=== PATIENT | female | born 1940 | race Caucasian/White ===

== ENCOUNTER 2018-10-15 16:34 | Inpatient (IN) | payer MEDICARE, MEDICAID ==
[2018-10-15 16:34] VITALS: BMI 28.3
--- NOTE | 2018-10-15 18:26 | ED PDOC ---
HPI: Back Time Seen by Provider: 10/15/18 17:33 Chief Complaint (Nursing): Back Pain Chief Complaint (Provider): Back Pain History Per: Patient, Family History/Exam Limitations: no limitations Onset/Duration Of Symptoms: Days (x1) Current Symptoms Are (Timing): Still Present Additional Complaint(s): 78 y/o female with a PMHx of Alzheimer's and DM brought in by son and EMS for evaluation after patient fell yesterday morning while getting up from bed. Son reports of finding the patient on the floor looking up after hearing her screaming in the room. Patient has since been unable to get out of bed and has become incontinent which is new for the patient thus prompting today's visit. Son reports he does not believe patient injured her head or lost consciousness as he heard screaming from her room and attended to her right away. Son additionally notes that patient has had poor appetite for the last few days. Otherwise, patient denies fever, sick contact, nausea and vomiting. PMD: Louis Farmer Past Medical History Reviewed: Historical Data, Nursing Documentation, Vital Signs Vital Signs: Last Vital Signs Temp 97.8 F 10/15/18 16:38 Pulse 80 10/15/18 16:38 Resp 18 10/15/18 16:38 BP 132/87 10/15/18 16:38 Pulse Ox 99 10/15/18 16:38 - Medical History PMH: Alzheimer's Disease, Anxiety, Dementia, Diabetes, HTN Denies: Hepatitis, HIV, Chronic Kidney Disease, Seizures, Sexually Transmitted Disease - Surgical History Surgical History: No Surg Hx - Family History Family History: States: Unknown Family Hx - Home Medications Home Medications: Ambulatory Orders Medication Instructions Recorded Levocetirizine Dihydrochloride 5 mg PO DAILY 03/22/16 Clopidogrel [Plavix] 75 mg PO DAILY #0 tab 03/26/16 Donepezil HCl [Aricept] 10 mg PO DAILY #0 tablet 03/26/16 Memantine HCl [Namenda Xr] 28 mg PO DAILY #0 cap.spr.24 03/26/16 Metformin HCl [Glucophage] 500 mg PO BID #0 tablet 03/26/16 Metoprolol Succinate XL [Toprol XL] 100 mg PO DAILY #0 tab 03/26/16 Mirtazapine [Remeron] 15 mg PO HS #0 tablet 09/07/16 Pantoprazole [Protonix EC Tab] 40 mg PO DAILY #0 ect 03/26/16 Pravastatin Sodium [Pravachol] 20 mg PO HS #0 tab 03/26/16 SITagliptin [Januvia] 100 mg PO DAILY #0 tab 03/26/16 - Allergies Allergies/Adverse Reactions: Allergies Allergy/AdvReac Type Severity Reaction Status Date / Time No Known Allergies Allergy Verified 03/22/16 11:26 Review of Systems ROS Statement: Except As Marked, All Systems Reviewed And Found Negative Constitutional: Negative for: Fever Gastrointestinal: Positive for: Other (POOR APPETITE). Negative for: Nausea, Vomiting Musculoskeletal: Positive for: Back Pain (S/P FALL) Physical Exam - Reviewed Nursing Documentation Reviewed: Yes Vital Signs Reviewed: Yes - Physical Exam Appears: Positive for: Uncomfortable Head Exam: Positive for: ATRAUMATIC, NORMAL INSPECTION (NO SIGNS OF HEAD INJURY), NORMOCEPHALIC Skin: Positive for: Normal Color, Warm, Dry Eye Exam: Positive for: Normal appearance, EOMI, PERRL Neck: Positive for: Normal, Painless ROM Cardiovascular/Chest: Positive for: Regular Rate, Rhythm Respiratory: Positive for: Normal Breath Sounds Back: Positive for: Other (complaining of pain with movement and palpation to the lumbar spine) Extremity: Negative for: Normal ROM (complaining of pain with movement ), Other (ecchymosis or obvious injury) Neurological/Psych: Positive for: Awake, Oriented (TO SELF), Other (Noted right facial paralysis that son notes is old) - Laboratory Results Result Diagrams: 10/15/18 18:21 10/15/18 18:21 - ECG O2 Sat by Pulse Oximetry: 99 (RA) Pulse Ox Interpretation: Normal Medical Decision Making Medical Decision Making: Time: 1753 Impression: Back Pain Plan: -- CT Cervical Spine -- CT Head w/o Contrast -- CT Lumbar Spine w/o Contrast -- EKG -- CMP -- Magnesium -- Phosphorus -- Troponin I -- CBC with Differentials -- IV Insertion -- Accucheck -- Pelvis Two XR -- Urinalysis PATIENT HANDED OFF TO HAMILTON PATEL PA-C. PT PENDING CT SCANS AND DISPOSITION Scribe Attestation: Documented by Christiano Rodriguez, acting as a scribe for Clarissa Mejia PA-C. Provider Scribe Attestation: All medical record entries made by the Scribe were at my direction and personally dictated by me. I have reviewed the chart and agree that the record accurately reflects my personal performance of the history, physical exam, medical decision making, and the department course for this patient. I have also personally directed, reviewed, and agree with the discharge instructions and disposition. Disposition - Clinical Impression Clinical Impression: Fall, Back pain, Alzheimer disease - Disposition Disposition Time: 20:00 Condition: FAIR Forms: [facility] (Mongolian) Patient Signed Over To: Hamilton Oilvas Handoff Comments: CT SCAN, DISPOSITION - POA Present On Arrival: None
[2018-10-15 18:34] LABS: BASO % 0.5 % (0.0-2.0); EOS # 0.1 K/uL (0.0-0.7); EOS % 1.2 % (0.0-4.0); HEMOGLOBIN 14.4 g/dL (12.0-16.0); LYMPH # 1.1 K/uL (1.0-4.3); LYMPH % 17.3 % (20.0-40.0); MEAN CELL VOLUME 85.9 fl (81.0-99.0); MEAN CORPUSCULAR HEMOGLOBIN 29.1 pg (27.0-31.0); MEAN CORPUSCULAR HGB CONC 33.9 g/dL (33.0-37.0); MEAN PLATELET VOLUME 8.2 fl (7.2-11.7); MONO # 0.5 K/uL (0.0-0.8); MONO % 8.3 % (0.0-10.0); NEUT # 4.5 K/uL (1.8-7.0); NEUT % 72.7 % (50.0-75.0); NRBC % 0.2 % (0.0-0.0); RBC 4.93 Mil/uL (3.80-5.20); RED CELL DISTRIBUTION WIDTH 14.2 % (11.5-14.5); WHITE BLOOD COUNT 6.1 K/uL (4.8-10.8)
[2018-10-15 18:49] LABS: ALB/GLOB RATIO 1.1 (1.0-2.1); ALBUMIN 4.3 g/dL (3.5-5.0); ALT/SGPT 24 U/L (9-52); AST/SGOT 28 U/L (14-36); BLOOD UREA NITROGEN 16 mg/dl (7-17); CALCIUM 9.7 mg/dL (8.4-10.2); GFR NON-AFRICAN AMERICAN > 60
[2018-10-15] MEDS ORDERED: Sodium Chloride 0.9% 500 ML IV STA (19:28)
--- NOTE | 2018-10-16 00:23 | ED PDOC ---
- Laboratory Results Result Diagrams: 10/15/18 18:21 10/15/18 18:21 Lab Results: Troponin I < 0.0120 ng/mL (0.00-0.120) 10/15/18 18:21 Total Bilirubin 1.0 mg/dl (0.2-1.3) 10/15/18 18:21 AST 28 U/L (14-36) 10/15/18 18:21 ALT 24 U/L (9-52) 10/15/18 18:21 Alkaline Phosphatase 89 U/L (38-126) 10/15/18 18:21 Total Protein 8.1 G/DL (6.3-8.2) 10/15/18 18:21 Albumin 4.3 g/dL (3.5-5.0) 10/15/18 18:21 Globulin 3.8 gm/dL (2.2-3.9) 10/15/18 18:21 Albumin/Globulin Ratio 1.1 (1.0-2.1) 10/15/18 18:21 - ECG ECG: Positive for: Viewed By Ms (reviewed by ED attending) ECG Rhythm: Positive for: Sinus Rhythm O2 Sat by Pulse Oximetry: 99 (RA) - Radiology X-Ray: Viewed By Ms X-Ray Interpretation: No Acute Disease - Other Rad xray right hip X-Ray: Viewed By Ms X-Ray Interpretation: no acute findings - Progress ED Course And Treament: Case endorsed to marketing writer from [employer] pending labs, imaging Patient sent back from CT due to agitation Aram Garcia ordered CT of the head Clinical history: fall. Protocol: Multiple axial CT images obtained with 5 mm slice thickness were obtained through the head without administration of contrast. Comparison: None. Findings: The ventricles and sulci are symmetric but prominent in size bilaterally. There are periventricular areas of low attenuation throughout the deep white matter. There is no evidence of acute hemorrhage or infarct. There is no midline shift, mass effect, or extra-axial fluid collection. The osseous structures are unremarkable. The visualized paranasal sinuses and mastoid air c ells are clear. Impression: No acute hemorrhage or infarct. Findings are consistent with age-related atrophy and chronic small vessel ischemic disease CT of the cervical spine Clinical history: fall. Technique: Multiple axial CT images were obtained through the cervical spine without administration of contrast. Coronal and sagittal 3-D reconstructed images were also obtained. Comparison: None. Findings: The cervical vertebral bodies are in satisfactory positioning and alignment. No fractures or dislocations are demonstrated. The odontoid process is intact. Intervertebral disc spaces are severely narrowed at C3/C4, C5/C6, C6/C7, and C7/T1. There is moderate bilateral facet arthropathy with sclerosis and osteophytes. There is no evidence of facet subluxation. The cervical cranial junction is intact. A large disc osteophyte complex at C3/C4 causes mild central canal stenosis measuring 9 mm in AP diameter. There is severe right neural foraminal narrowing and moderate left neural foraminal narrowing at this level. At C5/C6, there is a moderate disc osteophyte complex and disc bulge. This causes borderline central canal stenosis measuring 11 mm in AP diameter. There is moderate right neural foraminal narrowing at this level. There are mild disc osteophyte complexes and disc bulges at C6/C7 and C7/T1. Impression: 1. No acute fracture or traumatic injury. 2. Large disc osteophyte complex and disc bulge at C3/C4 causing mild central canal stenosis, severe right neural foraminal narrowing and moderate left neural foraminal narrowing. 3. Moderate disc osteophyte complex and disc bulge at C5/C6 causes borderline central canal stenosis and moderate right neural foraminal narrowing. 4. Disc osteophyte complexes and disc bulges are noted at C6/C7 and C7/T1 without evidence of central canal stenosis or neural foraminal narrowing. 5. Moderate diffuse spondylosis also as described CT scan of the lumbar spine without contrast. Indication: Fall. Back pain. Technique: Axial CT scan images without contrast. Reformatted coronal and sagittal images. Findings: Acute oblique nondisplaced fracture of the left sacral ala. Subacute fracture of the mid aspect of the left transverse process of L3. Moderate degenerative levoscoliosis apex at L3. Mild osteopenia of the bones. Grade 1 anterolisthesis of L5 on S1. Mild chronic benign osteoporotic compression deformity of L4. Moderate chronic benign osteoporotic compression deformity of T12.There are diffuse spondylotic changes. Findings are demonstrated by disc space narrowing, osteophyte formation and degenerative endplate changes. Facet joint arthropathy is noted. No dislocation is seen. No aggressive bone lesion is noted. Moderate chronic changes of gastric disease. Impression: Spondylosis. Multilevel facet joint arthropathy. Acute oblique nondisplaced fracture of the left sacral ala. Subacute fracture of the mid aspect of the left transverse process of L3 with callus formation Patient resting comfortably while in stretcher Case discussed with Dr. Hernandez for admission Disposition - Clinical Impression Clinical Impression: Fall, Alzheimer disease, Sacral fracture - POA Present On Arrival: Falls Or Trauma - Disposition Disposition: Hospitalized as Observation Patient Disposition Time: 01:00 Condition: FAIR
--- NOTE | 2018-10-16 10:37 | CT ---
Date of service: 10/15/2018 PROCEDURE: CT HEAD WITHOUT CONTRAST. HISTORY: fall/ unknown head injury COMPARISON: Comparison made with prior CT scan 03/23/2016. TECHNIQUE: Axial computed tomography images were obtained through the head/brain without intravenous contrast. Radiation dose: Total exam DLP = 797.36 mGy-cm. This CT exam was performed using one or more of the following dose reduction techniques: Automated exposure control, adjustment of the mA and/or kV according to patient size, and/or use of iterative reconstruction technique. FINDINGS: HEMORRHAGE: No acute parenchymal, subarachnoid or extra-axial hemorrhage. BRAIN: Moderate to fairly significant diffuse/confluent chronic periventricular white matter ischemic changes seen extending peripherally into the deep and subcortical white matter both cerebral hemispheres. There also scattered chronic bilateral basal nuclei lacunar type infarcts.. Additionally, there also suspected chronic brainstem ischemic changes Note that the possibility of a small hyperacute infarct cannot be excluded on this exam Moderate-significant generalized volume loss. VENTRICLES: No obstructive hydrocephalus. CALVARIUM: No acute calvarial fractures. PARANASAL SINUSES: Unremarkable as visualized. No significant inflammatory changes. MASTOID AIR CELLS: Unremarkable as visualized. No inflammatory changes. OTHER FINDINGS: Changes of bilateral cataract surgery again noted. IMPRESSION: No acute intracranial hemorrhage. Moderate-fairly significant diffuse and confluent chronic periventricular white matter ischemic changes with scattered chronic bilateral basal nuclei lacunar type infarcts. Suspect chronic brainstem ischemic changes as well. Note that the possibility of a small hyperacute infarct cannot be excluded on this exam Moderate generalized volume loss
--- NOTE | 2018-10-16 10:46 | CT ---
Date of service: 10/15/2018 PROCEDURE: CT Lumbar Spine without contrast HISTORY: fall/ back pain COMPARISON: None available. TECHNIQUE: Axial computed tomography images were obtained of the lumbar spine without the use of intravenous contrast. Coronal and sagittal reformatted images were created and reviewed. Radiation dose: Total exam DLP = 695.34 mGy-cm. This CT exam was performed using one or more of the following dose reduction techniques: Automated exposure control, adjustment of the mA and/or kV according to patient size, and/or use of iterative reconstruction technique. FINDINGS: VERTEBRAE: There are no acute compression fractures no retropulsed fragments however note made of a healing L3 transverse process fracture.. Chronic appearing degenerative endplate changes-Schmorl's nodes seen along the mid and right parasagittal superior L4 endplate as well as the posterior L2-L3 endplates. There is also a mild to moderate levoscoliosis centered at the L3-L4 level as well.. Slight anterior subluxation L5 over S1.. Slight posterior subluxation L1 over L2.. Note made of a few scattered small sclerotic foci likely representing bone islands or osteomas. DISCS/SPINAL CANAL/NEURAL FORAMINA: L1-2: Disc space narrowing. No disc herniation or significant disc bulge. Facets are hypertrophic. There is uncovering of the posterior inferior surface of the disc due to the slight posterior subluxation of L1 over L2. Facets are hypertrophic. Central canal and exit foramina adequate. L2-3: Disc space narrowing with small small to medium-sized osteophytic ridge disc complex that extends into the proximal inferior margins of both exit foramina. Facets are hypertrophic and flavum also buckled. Changes result in significant bilateral lateral recess and central canal stenosis. Exit foramina are mildly narrowed. L3-4: Disc space height relatively maintained. Moderate disc ridge complex extends into the proximal inferior margins of both exit foramina. Facets are hypertrophic and flavum are also buckled. Changes result in significant bilateral lateral recess and central canal stenosis. Proximal exit foramina are narrowed. L4-5: Disc space narrowing with vacuum disc phenomena. Broad-based disc ridge complex extends into the proximal inferior margins of both exit foramina. The facets are quite hypertrophic. There is bilateral lateral recess and central canal stenosis. The proximal exit foramina are quite stenotic bilaterally. L5-S1: There is disc space narrowing more so along the anterior disc margin with slight uncovering of the posterior superior surface of the disc due to the slight anterior subluxation. Small broad-based disc ridge complex also minimally flattens the ventral surface of the thecal sac. The facets are quite hypertrophic at this level left greater than right... Exit foramina are stenotic bilaterally with compressive effects on the L5 foraminal nerve roots left greater than right. PARASPINAL SOFT TISSUES: Unremarkable. OTHER FINDINGS: Suspect vascular calcifications left renal hilum. IMPRESSION: Healing left L3 transverse process fracture. No acute compression fractures no retropulsed fragments. Moderate to significant multilevel degenerative spondylosis as above.
--- NOTE | 2018-10-16 10:53 | CT ---
Date of service: 10/15/2018 PROCEDURE: CT Cervical Spine without contrast HISTORY: Fall COMPARISON: None available. TECHNIQUE: Axial computed tomography images were obtained of the cervical spine without the use of intravenous contrast. Coronal and sagittal reformatted images were created and reviewed. Radiation dose: Total exam DLP = 240.84 mGy-cm. This CT exam was performed using one or more of the following dose reduction techniques: Automated exposure control, adjustment of the mA and/or kV according to patient size, and/or use of iterative reconstruction technique. FINDINGS: VERTEBRAE: No acute compression fractures nor retropulsed fragments. Minor chronic appearing anterior stature loss of the C5 segment felt to be degenerative in origin. Vertebral bodies exhibit relatively normal stature. Slight anterior subluxation C7 over T1 vertebral bodies and facets normally aligned. DISCS/SPINAL CANAL/NEURAL FORAMINA: Multilevel degenerative spondylosis. At the C2-C3 level, there is adequate disc height. Minor asymmetric broad-based disc bulge larger on the right than left. Facets are hypertrophic. Central canal and exit foramina adequate. At the C3-C4 level, there is disc space narrowing. Irregular and asymmetric disc ridge complex larger on the right than left and contiguous with hypertrophic uncovertebral joints. Facets also moderate to significantly hypertrophic on the right and moderately hypertrophic on the left. Changes result in mild central canal stenosis and cord compression. Exit foramina are stenotic bilaterally right greater than left. At the C4-C5 level, there is relatively adequate disc height. No disc herniation. The left facet joint is quite hypertrophic. Central canal appears adequate. Left exit foramen is marginal to adequate. At the C5-C6 level, there is marked disc space narrowing with cortical endplate irregularity- eburnation with subchondral cystic changes. Small to medium-sized asymmetric ridge disc complex larger on the right than left and contiguous with hypertrophic uncovertebral joints.. The left facet quite hypertrophic. Mild right facet arthropathy. There is mild canal narrowing and cord compression more so on the right side. Right exit foramen is stenotic. Left exit foramen is marginal to minimally narrowed. At the C6-C7 level, there is marked disc space narrowing with cortical endplate irregularity. Small osteophytic ridge disc complex contiguous with hypertrophic uncovertebral joints. The facets also hypertrophic. Central canal exit foramina appear adequate. Degenerative changes also noted at the C7-T1 level include marked disc space narrowing with mild endplate eburnation. Central canal appears adequate. Exit foramina appear stenotic right greater than left.. PARASPINAL SOFT TISSUES: Unremarkable. OTHER FINDINGS: None. IMPRESSION: No acute fractures. Multilevel degenerative spondylosis as above
--- NOTE | 2018-10-16 14:39 | RAD ---
Date of service: 10/15/2018 PROCEDURE: Radiographs of the pelvis. HISTORY: Fall COMPARISON: Comparison made with concurrent CT scan lumbar spine which partially imaged the pelvis TECHNIQUE: 1 view obtained. FINDINGS: BONES: Pelvic Bones: Unremarkable. Hips: Grossly unremarkable.. There is partial obscuration of the lower sacrum by overlying bowel related type artifact JOINTS: Minor spur formation arising from the superolateral borders of both acetabular roofs. Sacroiliac Joints: Unremarkable. Pubic Symphysis: Unremarkable. OTHER FINDINGS: None. IMPRESSION: Slightly limited study as described. No definitive radiographic evidence of acute displaced fracture nor dislocation if symptoms persist or occult fracture suspected clinically recommend follow-up CT scan of the pelvis Mild DJD as above.
[2018-10-16] MEDS: Dextrose 5%/Lactated Ringer's 1,000 ML IV SCH (14:51)
--- NOTE | 2018-10-16 17:07 | RAD ---
Date of service: 10/15/2018 HISTORY: FALL COMPARISON: No prior. TECHNIQUE: 1 view obtained. FINDINGS: LUNGS: The interstitial markings are increased and coarsened; rule out chronic compensated pulmonary venous congestion. Suspect small granuloma left CP angle region.. PLEURA: No significant pleural effusion identified, no pneumothorax apparent. CARDIOVASCULAR: Moderate aortic atherosclerotic calcification present. Cardiomegaly with situ prostatic valve. OSSEOUS STRUCTURES: No significant abnormalities. VISUALIZED UPPER ABDOMEN: Normal. OTHER FINDINGS: None. IMPRESSION: The interstitial markings are increased and coarsened; rule out chronic compensated pulmonary venous congestion. Suspect small granuloma left CP angle region..
--- NOTE | 2018-10-16 17:09 | RAD ---
Date of service: 10/15/2018 PROCEDURE: Pelvis right hip HISTORY: FALL COMPARISON: Comparison made with prior concurrent radiographs of the pelvis TECHNIQUE: Frontal view of the pelvis and 3 additional views of the right hip performed. FINDINGS: No evidence of acute displaced fracture nor dislocation. Both femoral heads are appropriately located within the respective acetabula. Mild degenerative changes both hip joints with some spurring of the superolateral margins of the acetabular roofs. Note is also made of a crescentic shaped density which overlies the right lateral iliac bone possibly representing osteoma or bone island. IMPRESSION: No acute fractures. Mild degenerative osteoarthritis as described.
--- NOTE | 2018-10-16 18:40 | CARD ---
APPROVED REPORT Date of service: 10/16/2018 EKG Measurement Heart [id number] CO [id number] <Conclusion> Normal sinus rhythm Nonspecific ST and T wave abnormality Abnormal ECG
[2018-10-16] MEDS ORDERED: LUBIPROSTONE 24 MCG PO PRN (19:40)
[2018-10-16] MEDS: Pravastatin Sodium 20 MG TAB PO SCH (21:27)
[2018-10-16] MEDS ORDERED: Metoprolol Succinate 50 mg XL Tab PO ONE ×2 (21:54→21:59)
[2018-10-16] MEDS ORDERED: Acetaminophen-Codeine 300/30 mg Tab PO PRN (21:59)
[2018-10-17] MEDS: Dextrose 5%/Lactated Ringer's 1,000 ML IV SCH (06:25)
[2018-10-17] MEDS ORDERED: Metoprolol Succinate 50 mg XL Tab PO SCH (09:00)
[2018-10-17] MEDS: DONEPEZIL 23 MG PO SCH (09:32)
--- NOTE | 2018-10-17 17:20 | US ---
Date of service: 10/17/2018 PROCEDURE: Duplex ultrasound of the carotid and vertebral arteries. HISTORY: Falls COMPARISON: Comparison made with prior study 02/08/2010 TECHNIQUE: Grayscale and duplex Doppler evaluation of the cervical carotid and vertebral arteries were performed. The common carotid, carotid bifurcations and cervical ICA and proximal ECA were evaluated. The vertebral arteries were evaluated for gross patency and direction. FINDINGS: RIGHT CAROTID ARTERIES: Common Carotid Artery: Normal. Maximal flow velocity of 45 cm/s. Carotid Bifurcation: There is calcified plaque seen at the distal right common carotid artery as well as right carotid bifurcation extending into the proximal right internal carotid artery. Internal Carotid Artery:Normal. Maximal flow velocity of 50 cm/s. External Carotid Artery (proximal branches): Normal. Maximal flow velocity of 45 cm/s. ICA/CCA Ratio: 0.8 LEFT CAROTID ARTERIES: Common Carotid Artery: Normal. Maximal flow velocity of 52 cm/s. Carotid Bifurcation: Calcified plaque seen left carotid bifurcation and extending into the proximal left internal carotid artery Internal Carotid Artery:Normal. Maximal flow velocity of 54 cm/s. External Carotid Artery (proximal branches): Normal. Maximal flow velocity of 70 cm/s. ICA/CCA Ratio: 0.9 VERTEBRAL ARTERIES: Right Vertebral Artery: Patent. Antegrade flow. Left Vertebral Artery: Patent. Antegrade flow. OTHER FINDINGS: Atherosclerotic plaque present. As above. IMPRESSION: Calcified atherosclerotic plaque seen both carotid bifurcations and proximal internal carotid arteries as well as the distal right common carotid artery. No evidence of stepped up velocities.
[2018-10-17] MEDS: Metoprolol Succinate 100 mg XL Tab PO SCH (17:41)
[2018-10-17] MEDS: Pravastatin Sodium 20 MG TAB PO SCH (22:00)
--- NOTE | 2018-10-17 22:29 | CP.PCM.HP ---
History of Present Illness - History of Present Illness History of Present Illness: This is an 78 y/o female admitted after a fall at home and subsequent urinary incontinence. Patient was noted by her son lying on the floor screaming from pain after a fall. He also noted patient to have become incontinent of urine hence he got worried and brought patient to ER. Patient has a hx of HTn , dementia and DM 2 Initial xrays showed a fracture of left L3 transverse process fracture. Other xrays showed multiple sites of OA. The rest of lumbar discs showed multiple discs protrusion and bulging discs. Present on Admission - Present on Admission Any Indicators Present on Admission: No History of DVT/PE: No History of Uncontrolled Diabetes: Yes Urinary Catheter: No Decubitus Ulcer Present: No Review of Systems - Constitutional Constitutional: Anorexia - Neurological Neurological: Memory Loss, Weakness Past Patient History - Infectious Disease Hx of Infectious Diseases: None - Tetanus Immunizations Tetanus Immunization: Unknown - Past Medical History & Family History Past Medical History?: Yes - Past Social History Smoking Status: Unobtainab - CARDIAC Hx Hypertension: Yes - PULMONARY Hx Respiratory Disorders: No - NEUROLOGICAL Hx Neurological Disorder: Yes Hx Alzheimer's Disease: Yes Hx Dementia: Yes - HEENT Other/Comment: right eye with neuralgia,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 - RENAL Hx Chronic Kidney Disease: No - ENDOCRINE/METABOLIC Hx Endocrine Disorders: Yes Hx Diabetes Mellitus Type 2: Yes - HEMATOLOGICAL/ONCOLOGICAL Hx Human Immunodeficiency Virus (HIV): No - INTEGUMENTARY Hx Dermatological Problems: No - MUSCULOSKELETAL/RHEUMATOLOGICAL Hx Musculoskeletal Disorders: Yes Hx Falls: Yes - GASTROINTESTINAL Hx Gastrointestinal Disorders: No - GENITOURINARY/GYNECOLOGICAL Hx Sexually Transmitted Disorders: No - PSYCHIATRIC Hx Anxiety: Yes - SURGICAL HISTORY Hx Surgeries: No - ANESTHESIA Hx Anesthesia: (unknown - does not remember) Meds Allergies/Adverse Reactions: Allergies Allergy/AdvReac Type Severity Reaction Status Date / Time No Known Allergies Allergy Verified 03/22/16 11:26 Physical Exam - Head Exam Head Exam: NORMAL INSPECTION - Eye Exam Eye Exam: Normal appearance - ENT Exam ENT Exam: Mucous Membranes Moist - Respiratory Exam Respiratory Exam: Clear to Auscultation Bilateral - Cardiovascular Exam Cardiovascular Exam: REGULAR RHYTHM - GI/Abdominal Exam GI & Abdominal Exam: Normal Bowel Sounds - Neurological Exam Neurological exam: CN II-XII Intact, Oriented x3 Results - Vital Signs Recent Vital Signs: Last Vital Signs Temp 97.8 F 10/17/18 20:22 Pulse 83 10/17/18 20:22 Resp 18 10/17/18 20:22 BP 160/95 H 10/17/18 20:22 Pulse Ox 95 10/17/18 20:22 - Labs Result Diagrams: 10/15/18 18:21 10/15/18 18:21 Labs: Laboratory Results - last 24 hr 10/17/18 10/17/18 10/17/18 05:02 10:41 15:49 POC Glucose (mg/dL) 182 H 194 H 180 H 10/17/18 22:06 POC Glucose (mg/dL) 158 H Assessment & Plan (1) Lumbar vertebral fracture Status: Acute (2) Alzheimer disease Status: Acute (3) HTN (hypertension) Status: Chronic (4) Fall Status: Acute (5) Dementia Status: Acute (6) DM2 (diabetes mellitus, type 2) Status: Chronic - Assessment and Plan (Free Text) Plan: Observe BP meds accucheck restart januvia cont fluids start phys therapy in am
--- NOTE | 2018-10-17 22:40 | CP.PCM.PN ---
Subjective - Date & Time of Evaluation Date of Evaluation: 10/17/18 Time of Evaluation: 16:00 - Subjective Subjective: Noted to have elevated BP despite meds accuchecks are also elevated Very poor appetite Has minimal pain Objective - Vital Signs/Intake and Output Vital Signs (last 24 hours): Temp Pulse Resp BP Pulse Ox 97.8 F 83 18 160/95 H 95 10/17/18 20:22 10/17/18 20:22 10/17/18 20:22 10/17/18 20:22 10/17/18 20:22 - Medications Medications: Current Medications Acetaminophen/Codeine Phosphate (Tylenol/Codeine 300 Mg/30 Mg) 1 tab PO TID PRN PRN Reason: Pain, moderate (4-7) Clopidogrel Bisulfate (Plavix) 75 mg PO DAILY [facility] Last Admin: 10/17/18 09:33 Dose: 75 mg Home Med (Patient's Own Medication) 1 unit PO DAILY [facility] Last Admin: 10/17/18 09:32 Dose: 1 unit Home Med (Patient's Own Medication) 1 unit PO BIDWM PRN PRN Reason: constipation Lisinopril (Zestril) 20 mg PO DAILY [facility] Last Admin: 10/17/18 17:40 Dose: 20 mg Memantine (Namenda) 10 mg PO BID [facility] Last Admin: 10/17/18 17:40 Dose: 10 mg Metoprolol Succinate (Toprol Xl) 100 mg PO DAILY [facility] Last Admin: 10/17/18 17:41 Dose: 100 mg Pravastatin Sodium (Pravachol) 20 mg PO [facility] Last Admin: 10/17/18 22:00 Dose: Not Given Sitagliptin Phosphate (Januvia) 100 mg PO DAILY [facility] Last Admin: 10/17/18 09:32 Dose: 100 mg - Labs Labs: 10/15/18 18:21 10/15/18 18:21 - Head Exam Head Exam: NORMAL INSPECTION - Eye Exam Eye Exam: Normal appearance - Respiratory Exam Respiratory Exam: NORMAL BREATHING PATTERN - Cardiovascular Exam Cardiovascular Exam: REGULAR RHYTHM - GI/Abdominal Exam GI & Abdominal Exam: Normal Bowel Sounds - Neurological Exam Neurological Exam: Awake Assessment and Plan (1) Lumbar vertebral fracture Status: Acute (2) Alzheimer disease Status: Acute (3) HTN (hypertension) Status: Chronic (4) Fall Status: Acute (5) Dementia Status: Acute (6) DM2 (diabetes mellitus, type 2) Status: Chronic - Assessment and Plan (Free Text) Plan: Cont meds check CXR and urine adjust BP meds add amlodipine
[2018-10-18 04:37] VITALS: RESP 18
[2018-10-18 05:50] LABS: HEMOGLOBIN 13.5 g/dL (12.0-16.0); MEAN CELL VOLUME 86.3 fl (81.0-99.0); MEAN CORPUSCULAR HEMOGLOBIN 28.3 pg (27.0-31.0); MEAN CORPUSCULAR HGB CONC 32.8 g/dL (33.0-37.0); RBC 4.78 Mil/uL (3.80-5.20); RED CELL DISTRIBUTION WIDTH 14.2 % (11.5-14.5); WHITE BLOOD COUNT 10.1 K/uL (4.8-10.8)
[2018-10-18 06:07] LABS: ALB/GLOB RATIO 1.1 (1.0-2.1); ALBUMIN 3.7 g/dL (3.5-5.0); ALT/SGPT 32 U/L (9-52); AST/SGOT 22 U/L (14-36); BLOOD UREA NITROGEN 8 mg/dl (7-17); CALCIUM 9.5 mg/dL (8.4-10.2); GFR NON-AFRICAN AMERICAN > 60; HDL CHOLESTEROL 40 MG/DL (30-70)
[2018-10-18 06:09] LABS: B-TYPE NATRIURETIC PEPTIDE 3150 pg/ml (0-900)
[2018-10-18 06:13] LABS: LDL CHOLESTEROL 89 mg/dL (0-129)
--- NOTE | 2018-10-18 12:42 | CP.PCM.PCO ---
Assessment/Plan Progress Note - Assessment/Plan Assessment (Free Text): pt. seen and examined, pt in NAD, oriented to self only, spoke to son at bedside who is next of kin, son reports pt. has progressive Alzh. Dementia and is unable to care for her at home ; requesting NH placement advance directives discussed with son along w/ goals of care; at this this son requests full code status - Problems Patient Problems: Problem List (Active/Current) Problem Status Onset Code Alzheimer disease Acute G30.9, F02.80 Dementia Acute F03.90 Fall Acute W19.XXXA Lumbar vertebral fracture Acute S32.009A Sacral fracture Acute S32.10XA
--- NOTE | 2018-10-18 18:37 | CARD ---
APPROVED REPORT Date of service: 10/18/2018 EXAM: Two-dimensional and M-mode echocardiogram with Doppler and color Doppler. Other Information Quality : AverageRhythm : NSR INDICATION Hypertension/HCVD Pulmonary Congestion 2D DIMENSIONS IVSd1.06 (0.7-1.1cm)LVDd4.59 (3.9-5.9cm) LVOT Diameter1.57 (1.8-2.4cm)PWd1.04 (0.7-1.1cm) IVSs1.33 (0.8-1.2cm)LVDs2.64 (2.5-4.0cm) FS (%) 42.5 %PWs1.19 (0.8-1.2cm) Aortic Valve AoV Peak Gcxdbvgd477.8cm/sAoV VTI48.2cmAO Peak GR.35mmHg LVOT Peak Omjuepcj426.2cm/sLVOT VTI21.98cmAO Mean GR.20mmHg ALEJANDRO (VMAX)0.83cu7EVL (VTI)0.58cm2 Mitral Valve MV E Ouzdmwjs31.8cm/sMV DECEL OGOQ364jhMN A Uorurhjk998.7cm/s MV CKN00txY/A ratio0.6MVA (PHT)2.58cm2 TDI Lateral E' Peak V6.11cm/sMedial E' Peak V3.26cm/sE/Lateral E'12.6 E/Medial E'23.6 Tricuspid Valve TR Peak Vzolwyhr274rk/sRAP BMRSZCXC12lgSfCX Peak Gr.25mmHg [id number] LEFT VENTRICLE The left ventricle is normal size. There is normal left ventricular wall thickness. The left ventricular systolic function is normal. The estimated ejection fraction is 60-65% No regional wall motion abnormalities noted.. Transmitral Doppler flow pattern is Grade I-abnormal relaxation pattern. No left ventricle thrombus noted on this study. There is no ventricular septal defect visualized. There is no left ventricular aneurysm. There is no mass noted in the left ventricle. RIGHT VENTRICLE The right ventricle is normal size. There is normal right ventricular wall thickness. The right ventricular systolic function is normal. ATRIA The left atrium size is normal. The right atrium size is normal. The interatrial septum is intact with no evidence for an atrial septal defect. AORTIC VALVE The aortic valve is calcified. No aortic regurgitation is present. There is moderate to severe aortic valvular stenosis. Peak aortic velocity is - 3.5 m/sec. Calculated AV area is < 1cm2. There is no aortic valvular vegetation. MITRAL VALVE The mitral valve is normal in structure. There is no evidence of mitral valve prolapse. There is no mitral valve stenosis. There is trace mitral valve regurgitation noted. TRICUSPID VALVE The tricuspid valve is normal in structure. There is mild tricuspid valve regurgitation noted. RVSP is calculated at 30 mm Hg. There is no tricuspid valve prolapse or vegetation. There is no tricuspid valve stenosis. PULMONIC VALVE The pulmonary valve is normal in structure. There is no pulmonic valvular regurgitation. There is no pulmonic valvular stenosis. GREAT VESSELS The aortic root is normal in size. The ascending aorta is normal in size. The pulmonary artery is normal. The IVC is normal in size and collapses >50% with inspiration. PERICARDIAL EFFUSION There is no pericardial effusion. There is no pleural effusion. <Conclusion> The estimated ejection fraction is 60-65% Transmitral Doppler flow pattern is Grade I-abnormal relaxation pattern. The left atrium size is normal. There is moderate to severe aortic valvular stenosis. Peak aortic velocity is - 3.5 m/sec. Calculated AV area is < 1cm2. Correlate clinically. There is trace mitral valve regurgitation noted. There is mild tricuspid valve regurgitation noted. RVSP is calculated at 30 mm Hg.
[2018-10-18] MEDS: Pravastatin Sodium 20 MG TAB PO SCH (21:31)
--- NOTE | 2018-10-18 23:10 | CP.PCM.PN ---
Subjective - Date & Time of Evaluation Date of Evaluation: 10/18/18 Time of Evaluation: 10:30 - Subjective Subjective: patient seen and examined at bedside. Interim events noted No complaints offered at this time denies cp/sob/fever/chills. available diagnostic data reviewed Review of Systems limited due to dementia Objective Vital Signs Stable - Constitutional Appears: Non-toxic, No Acute Distress Head Exam: NORMAL INSPECTION Eye Exam: Normal appearance Respiratory Exam: NORMAL BREATHING PATTERN Cardiovascular Exam: +S1, +S2 GI & Abdominal Exam: Soft Neurological Exam: Alert, Awake Psychiatric exam: Normal Affect, Normal Mood Skin Exam: Normal Color, Warm Assessment and Plan monitor vitals monitor labs Cont meds Cont tx consultants appreciated input PT eval echo today rest of plan as ordered Objective - Vital Signs/Intake and Output Vital Signs (last 24 hours): Temp Pulse Resp BP Pulse Ox 97.7 F 91 H 18 151/88 H 98 10/18/18 19:53 10/18/18 19:53 10/18/18 19:53 10/18/18 19:53 10/18/18 19:53 - Medications Medications: Current Medications Acetaminophen/Codeine Phosphate (Tylenol/Codeine 300 Mg/30 Mg) 1 tab PO TID PRN PRN Reason: Pain, moderate (4-7) Clopidogrel Bisulfate (Plavix) 75 mg PO DAILY [facility] Last Admin: 10/17/18 09:33 Dose: 75 mg Home Med (Patient's Own Medication) 1 unit PO DAILY [facility] Last Admin: 10/17/18 09:32 Dose: 1 unit Home Med (Patient's Own Medication) 1 unit PO BIDWM PRN PRN Reason: constipation Lisinopril (Zestril) 20 mg PO DAILY [facility] Last Admin: 10/17/18 17:40 Dose: 20 mg Memantine (Namenda) 10 mg PO BID [facility] Last Admin: 10/17/18 17:40 Dose: 10 mg Metoprolol Succinate (Toprol Xl) 100 mg PO DAILY [facility] Last Admin: 10/17/18 17:41 Dose: 100 mg Pravastatin Sodium (Pravachol) 20 mg PO HS [facility] Last Admin: 10/18/18 21:31 Dose: 20 mg Sitagliptin Phosphate (Januvia) 100 mg PO DAILY [facility] Last Admin: 10/17/18 09:32 Dose: 100 mg - Labs Labs: 10/18/18 04:40 04/01/19 04:40 Assessment and Plan (1) Alzheimer disease Status: Acute (2) Dementia Status: Acute (3) Fall Status: Acute (4) Lumbar vertebral fracture Status: Acute (5) DM2 (diabetes mellitus, type 2) Status: Chronic
[2018-10-19 04:53] VITALS: BP 125/87; PULSE 101; TEMP 98.2; O2SAT 96
[2018-10-19] MEDS: DONEPEZIL 23 MG PO SCH (09:56)
[2018-10-19] MEDS: Metoprolol Succinate 100 mg XL Tab PO SCH (09:57)
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
== END 2018-10-19 14:20 | DRG 552 ==
LOC: H.ER 16:34 → H.ERHOLD 10-16 01:23 → H.TEL 10-16 06:07 → OBSVTOIN 10-17 17:31
PROVIDERS: ADMIT Family Medicine; ATTEND Family Medicine
DX: S32.039A Unspecified fracture of third lumbar vertebra, initial encounter for closed fracture (principal); S32.10XA Unspecified fracture of sacrum, initial encounter for closed fracture; F02.81 Dementia in other diseases classified elsewhere, unspecified severity, with behavioral disturbance; R32 Unspecified urinary incontinence; G30.9 Alzheimer's disease, unspecified; E11.9 Type 2 diabetes mellitus without complications; M47.812 Spondylosis without myelopathy or radiculopathy, cervical region; W06.XXXA Fall from bed, initial encounter; Y92.003 Bedroom of unspecified non-institutional (private) residence as the place of occurrence of the external cause; F41.9 Anxiety disorder, unspecified; I10 Essential (primary) hypertension; Z79.02 Long term (current) use of antithrombotics/antiplatelets; Z79.84 Long term (current) use of oral hypoglycemic drugs; M48.02 Spinal stenosis, cervical region